=== PATIENT | male | born 1965 | race African-American/Black ===

== ENCOUNTER 2023-01-24 16:05 | Emergency (ER) | payer OTHER ==
[2023-01-24 16:13] VITALS: BP 165/93; PULSE 71; RESP 20; TEMP 98.9; BMI 27.1
[2023-01-24] MEDS ORDERED: OXYMETAZOLINE 0.05% NASAL SOLUTION 15 ML BOTTLE NS ONE (16:51)
== END 2023-01-24 17:55 | disposition home or self-care (01) ==
LOC: JERFT 16:05
DX: R04.0 Epistaxis (principal)
CPT/HCPCS: 99282-25